=== PATIENT | female | born 1995 | race Caucasian/White ===

== ENCOUNTER 2018-07-29 15:35 | Emergency (ER) | payer MEDICAID, OTHER ==
[~2018-07-29] VITALS: Ht 182.9 cm; Wt 72.7 kg
[~2018-07-29 15:35] MED LIST: AZIT250T PO; NO HOME MEDS; ZOF4T PO
[2018-07-29] MEDS ORDERED: ondansetron/PF 4mg/2ml inj IV ONE (17:00)
[2018-07-29] MEDS ORDERED: normal saline 1000ml 1,000 ML IV ONE (17:00)
[2018-07-29 17:31] LABS: BASOPHILS # (AUTO) 0.1 X10'3 (0-0.2); BASOPHILS % (AUTO) 0.4 % (0-1); EOSINOPHILS % (AUTO) 0.3 % (0-6); HEMATOCRIT 37.8 % (35.0-45.0); HEMOGLOBIN 12.1 g/dl (12.0-16.0); LYMPHOCYTES # (AUTO) 0.8 X10'3 (1.1-4.8); MEAN CORPUSCULAR HEMOGLOBIN 27.5 PG (27.0-31.0); MEAN CORPUSCULAR HGB CONC 32.1 g/dL (33.0-36.5); MEAN CORPUSCULAR VOLUME 85.6 FL (78-98); MEAN PLATELET VOLUME 8.7 FL (7.4-10.4); MONOCYTES # (AUTO) 0.8 X10'3 (0-0.9); MONOCYTES % (AUTO) 5.9 % (2-12); NEUTROPHILS # (AUTO) 12.4 X10'3 (1.8-7.7); NEUTROPHILS % (AUTO) 87.4 % (42-75); PLATELET COUNT 182 X10'3 (140-440); RED BLOOD COUNT 4.42 X10'6 (4.20-5.60); RED CELL DISTRIBUTION WIDTH 13.2 % (11.5-14.5); WHITE BLOOD COUNT 14.2 X10'3 (4.5-11.0)
[2018-07-29 17:40] LABS: ALANINE AMINOTRANSFERASE 21 U/L (12-78); ALBUMIN 3.1 G/DL (3.4-5.0); ALBUMIN/GLOBULIN RATIO 1.2 (1.1-1.5); ALKALINE PHOSPHATASE 52 IU/L (46-116); ANION GAP 12 (8-16); ASPARTATE AMINO TRANSFERASE 17 U/L (10-37); BILIRUBIN,TOTAL 0.2 MG/DL (0.1-1.0); BLOOD UREA NITROGEN 9 MG/DL (7-18); BUN/CREATININE RATIO 11.5 (6.6-38.0); CALCIUM 7.5 MG/DL (8.5-10.1); CHLORIDE 112 MMOL/L (99-107); CREATININE 0.78 MG/DL (0.40-0.90); GLUCOSE 85 MG/DL (70-104); POTASSIUM 3.3 MMOL/L (3.5-5.1); SODIUM 150 MMOL/L (135-145); TOTAL CARBON DIOXIDE 25.9 MMOL/L (24-32); TOTAL PROTEIN 5.6 G/DL (6.4-8.2); eGFR > 90 ML/MIN
[2018-07-29 18:17] LABS: URINE HCG NEGATIVE (NEG)
[2018-07-29 18:23] LABS: URINE AMPHETAMINE SCREEN POSITIVE (Neg); URINE BARBITUATE SCREEN NEGATIVE (Neg); URINE BENZODIAZEPINES SCREEN NEGATIVE (Neg); URINE CANNABINOID SCREEN POSITIVE (Neg); URINE COCAINE SCREEN NEGATIVE (Neg); URINE METHADONE SCREEN NEGATIVE (Neg); URINE OPIATE SCREEN POSITIVE (Neg); URINE PHENCYCLIDINE SCREEN NEGATIVE (Neg)
[2018-07-29 18:28] LABS: CLARITY,URINE SLIGHTLY CLOUDY (Clear); COLOR,URINE YELLOW (Yellow); UA COLLECTION TYPE CLN CATCH MIDSTREAM
[2018-07-29 18:29] LABS: GLUCOSE, URINE NEGATIVE (Neg); KETONES,URINE TRACE mg/dl (Neg); LEUKOCYTE ESTERASE ,URINE NEGATIVE (Neg); NITRITES, URINE NEGATIVE (Neg); OCCULT BLOOD,URINE NEGATIVE (Neg); PROTEIN,URINE TRACE mg/dl (Neg); UROBILINOGEN,URINE 0.2 E.U/dL (0.2-1.0)
[2018-07-29] MEDS ORDERED: ONDA4TAB6 PO (18:29)
[2018-07-29 18:35] LABS: MUCUS STRANDS MANY /LPF (Neg); SQUAMOUS EPITHELIAL CELL,UR MODERATE /LPF (FEW)
[2018-07-29 18:37] LABS: RBC,URINE NONE SEEN /HPF (0-2); TRANSITIONAL EPI CELLS,URINE FEW /HPF; WBC,URINE 0-4 /HPF (0-4)
[2018-07-29 18:38] LABS: BACTERIA,URINE NONE SEEN /HPF (Neg)
[2018-07-29 18:39] LABS: AMMONIUM BIURATE CRYSTALS 2+ /HPF (NEGATIVE)
[2018-07-29 18:45] VITALS: BP 105/65
== END 2018-07-29 18:46 | disposition home or self-care (01) ==
LOC: ER 15:36
DX: F12.10 Cannabis abuse, uncomplicated (principal); R11.2 Nausea with vomiting, unspecified; F11.90 Opioid use, unspecified, uncomplicated; Z86.14 Personal history of Methicillin resistant Staphylococcus aureus infection; Z79.899 Other long term (current) drug therapy
CPT/HCPCS: 36415; 80053; 80305; 81001; 81025; 85025; 96361; 96374; 99283; J2405; J7030

== ENCOUNTER 2020-02-26 22:30 | Emergency (ER) | payer MEDICAID ==
[~2020-02-26] VITALS: Ht 182.9 cm; Wt 69.1 kg
[~2020-02-26 22:30] MED LIST changes: -AZIT250T PO; +ONDA4TAB6 PO; -ZOF4T PO
[2020-02-26] MEDS ORDERED: ondansetron 4mg rapidly disintigrating tab PO ONE (23:20)
[2020-02-27 00:07] VITALS: BP 107/51
[2020-02-27 00:08] LABS: CLARITY,URINE CLEAR (Clear); COLOR,URINE YELLOW (Yellow); GLUCOSE, URINE NEGATIVE (Neg); KETONES,URINE NEGATIVE (Neg); LEUKOCYTE ESTERASE ,URINE NEGATIVE (Neg); NITRITES, URINE NEGATIVE (Neg); OCCULT BLOOD,URINE NEGATIVE (Neg); PROTEIN,URINE NEGATIVE (Neg); UA COLLECTION TYPE CLN CATCH MIDSTREAM; UROBILINOGEN,URINE 0.2 E.U/dL (0.2-1.0)
[2020-02-27 00:19] LABS: URINE HCG NEGATIVE (NEG)
--- NOTE | 2020-02-27 00:21 | NUR ---
GIVEN WARM BLANKET, LIGHTS DIMMED. UPDATED THAT [facility]A SHOULD BE RESULTING IN THE NEXT 30 MIN. PT WITH NO FURTHER NEEDS. VSS. REPORTS ZOFRAN HAS HALPED WITH THE NAUSEA.
[2020-02-27] MEDS ORDERED: ONDA8TAB13 PO (00:25)
== END 2020-02-27 00:50 | disposition home or self-care (01) ==
LOC: ER 22:30
DX: R11.2 Nausea with vomiting, unspecified (principal); F17.200 Nicotine dependence, unspecified, uncomplicated; F12.90 Cannabis use, unspecified, uncomplicated; Z86.14 Personal history of Methicillin resistant Staphylococcus aureus infection; Z79.899 Other long term (current) drug therapy
CPT/HCPCS: 81003; 81025; 96372; 99283; 99284

== ENCOUNTER 2020-03-20 18:07 | Emergency (ER) | payer MEDICAID ==
[~2020-03-20] VITALS: Ht 182.9 cm; Wt 65.2 kg
[~2020-03-20 18:07] MED LIST changes: +ONDA8TAB13 PO
[2020-03-20 18:28] VITALS: BP 133/91
[2020-03-20 19:48] LABS: CLARITY,URINE CLOUDY (Clear); COLOR,URINE YELLOW (Yellow); GLUCOSE, URINE NEGATIVE (Neg); KETONES,URINE NEGATIVE (Neg); LEUKOCYTE ESTERASE ,URINE TRACE (Neg); NITRITES, URINE NEGATIVE (Neg); OCCULT BLOOD,URINE MODERATE (Neg); PROTEIN,URINE NEGATIVE (Neg); UROBILINOGEN,URINE 0.2 E.U/dL (0.2-1.0)
[2020-03-20 19:50] LABS: URINE HCG NEGATIVE (NEG)
[2020-03-20 20:01] LABS: BACTERIA,URINE 1+ /HPF (Neg); RBC,URINE 0-2 /HPF (0-2); SQUAMOUS EPITHELIAL CELL,UR NONE SEEN /LPF (FEW); WBC,URINE 0-4 /HPF (0-4)
[2020-03-20] MEDS ORDERED: CefTRIAXone 250MG IM Kit w/LIDOcaine IM ONE (20:25)
[2020-03-20] MEDS ORDERED: azithromycin 250mg tablet PO ONE (20:25)
[2020-03-22 13:41] LABS: UA COLLECTION TYPE VOIDED
== END 2020-03-20 21:15 | disposition home or self-care (01) ==
LOC: ER 18:07
DX: Z20.2 Contact with and (suspected) exposure to infections with a predominantly sexual mode of transmission (principal); F12.90 Cannabis use, unspecified, uncomplicated; Z79.899 Other long term (current) drug therapy
CPT/HCPCS: 36415; 81001; 81025; 87088; 87491; 87591; 96372; 99283; J0696

== ENCOUNTER 2020-11-01 15:21 | Emergency (ER) | payer MEDICAID ==
[~2020-11-01] VITALS: Ht 182.9 cm; Wt 68.2 kg
[2020-11-01 15:44] VITALS: BP 122/80
== END 2020-11-01 16:28 ==
LOC: ER 15:22
DX: O26.891 Other specified pregnancy related conditions, first trimester (principal); Z02.89 Encounter for other administrative examinations
CPT/HCPCS: 99283

== ENCOUNTER 2021-04-28 01:18 | Emergency (ER) | payer MEDICAID ==
[~2021-04-28] VITALS: Ht 182.9 cm; Wt 73.0 kg
[2021-04-28 03:36] LABS: URINE HCG NEGATIVE (NEG)
[2021-04-28 03:37] LABS: CLARITY,URINE CLOUDY (Clear); COLOR,URINE AMBER (Yellow); GLUCOSE, URINE NEGATIVE (Neg); KETONES,URINE TRACE mg/dl (Neg); LEUKOCYTE ESTERASE ,URINE NEGATIVE (Neg); NITRITES, URINE POSITIVE (Neg); OCCULT BLOOD,URINE NEGATIVE (Neg); PH,URINE 5.5 (4.8-8.0); PROTEIN,URINE NEGATIVE (Neg); UA COLLECTION TYPE CLN CATCH MIDSTREAM; UROBILINOGEN,URINE 0.2 E.U/dL (0.2-1.0)
[2021-04-28 03:57] LABS: BACTERIA,URINE 3+ /HPF (Neg); MUCUS STRANDS FEW /LPF (Neg); RBC,URINE NONE SEEN /HPF (0-2); SQUAMOUS EPITHELIAL CELL,UR FEW /LPF (FEW); WBC,URINE 30-50 /HPF (0-4)
[2021-04-28 04:35] VITALS: BP 109/71
[2021-04-28 04:46] LABS: ALANINE AMINOTRANSFERASE 27 U/L (12-78); ALBUMIN 3.5 G/DL (3.4-5.0); ALBUMIN/GLOBULIN RATIO 1.1 (1.1-1.5); ALKALINE PHOSPHATASE 65 IU/L (46-116); ANION GAP 4 (8-16); ASPARTATE AMINO TRANSFERASE 16 U/L (10-37); BILIRUBIN,TOTAL 0.2 MG/DL (0.1-1.0); BLOOD UREA NITROGEN 15 MG/DL (7-18); BUN/CREATININE RATIO 14.7 (6.6-38.0); CALCIUM 8.9 MG/DL (8.5-10.1); CHLORIDE 109 MMOL/L (99-107); CREATININE 1.02 MG/DL (0.40-0.90); GLUCOSE 117 MG/DL (70-104); LIPASE < 50 U/L (73-393); POTASSIUM 3.7 MMOL/L (3.5-5.1); SODIUM 145 MMOL/L (135-145); TOTAL PROTEIN 6.7 G/DL (6.4-8.2); eGFR 66 ML/MIN
[2021-04-28 04:54] LABS: EOSINOPHILS # (AUTO) 0.2 X10'3 (0-0.9); EOSINOPHILS % (AUTO) 3.3 % (0-6); HEMATOCRIT 38.9 % (35.0-45.0); HEMOGLOBIN 12.7 g/dl (12.0-16.0); LYMPHOCYTES % (AUTO) 42.1 % (21-51); MEAN CORPUSCULAR HGB CONC 32.7 g/dL (33.0-36.5); MEAN CORPUSCULAR VOLUME 85.5 FL (78-98); MEAN PLATELET VOLUME 8.4 FL (7.4-10.4); MONOCYTES # (AUTO) 0.4 X10'3 (0-0.9); MONOCYTES % (AUTO) 9.3 % (2-12); NEUTROPHILS # (AUTO) 2.1 X10'3 (1.8-7.7); NEUTROPHILS % (AUTO) 44.3 % (42-75); PLATELET COUNT 215 X10'3 (140-440); RED BLOOD COUNT 4.56 X10'6 (4.20-5.60); RED CELL DISTRIBUTION WIDTH 14.3 % (11.5-14.5); WHITE BLOOD COUNT 4.6 X10'3 (4.5-11.0)
[2021-04-28] MEDS ORDERED: CEPH-585 PO (05:59)
[2021-04-28] MEDS ORDERED: METR-159 PO (05:59)
== END 2021-04-28 06:09 | disposition home or self-care (01) ==
LOC: ER 01:18
DX: N76.0 Acute vaginitis (principal); N39.0 Urinary tract infection, site not specified; F15.10 Other stimulant abuse, uncomplicated; F11.10 Opioid abuse, uncomplicated; F14.10 Cocaine abuse, uncomplicated
CPT/HCPCS: 36415; 80053; 81001; 81025; 83690; 85025; 87088; 87210; 87491; 87591; 99284; Q0112; 87077; 87186

== ENCOUNTER 2022-05-03 22:21 | Emergency (ER) | payer MEDICAID ==
[~2022-05-03] VITALS: Ht 182.9 cm; Wt 68.2 kg
[2022-05-03 22:32] VITALS: BP 116/82
[2022-05-03 23:08] LABS: HCG SERUM QL NEGATIVE
[2022-05-03 23:17] LABS: BETA HCG,QUANTITATIVE < 1.0 mIU/ml
== END 2022-05-03 23:46 ==
LOC: ER 22:22
DX: Z02.89 Encounter for other administrative examinations (principal); F15.90 Other stimulant use, unspecified, uncomplicated; F11.90 Opioid use, unspecified, uncomplicated; Z86.14 Personal history of Methicillin resistant Staphylococcus aureus infection; Z79.899 Other long term (current) drug therapy
CPT/HCPCS: 36415; 84702; 84703; 99283

== ENCOUNTER 2022-08-31 21:51 | Emergency (ER) | payer MEDICAID ==
[~2022-08-31] VITALS: Ht 182.9 cm; Wt 77.1 kg
[2022-08-31 22:24] LABS: HCG SERUM QL POSITIVE
[2022-08-31 23:09] LABS: BASOPHILS % (AUTO) 0.5 % (0-1); EOSINOPHILS % (AUTO) 0.7 % (0-6); HEMATOCRIT 41.1 % (35.0-45.0); HEMOGLOBIN 13.4 g/dl (12.0-16.0); LYMPHOCYTES # (AUTO) 1.1 X10'3 (1.1-4.8); LYMPHOCYTES % (AUTO) 14.4 % (21-51); MEAN CORPUSCULAR HEMOGLOBIN 27.6 PG (27.0-31.0); MEAN CORPUSCULAR HGB CONC 32.5 g/dL (33.0-36.5); MEAN CORPUSCULAR VOLUME 84.9 FL (78-98); MEAN PLATELET VOLUME 7.9 FL (7.4-10.4); MONOCYTES # (AUTO) 0.4 X10'3 (0-0.9); MONOCYTES % (AUTO) 5.6 % (2-12); NEUTROPHILS # (AUTO) 5.9 X10'3 (1.8-7.7); NEUTROPHILS % (AUTO) 78.8 % (42-75); PLATELET COUNT 231 X10'3 (140-440); RED BLOOD COUNT 4.85 X10'6 (4.20-5.60); RED CELL DISTRIBUTION WIDTH 14.5 % (11.5-14.5); WHITE BLOOD COUNT 7.4 X10'3 (4.5-11.0)
[2022-08-31 23:12] LABS: CLARITY,URINE CLOUDY (Clear); COLOR,URINE YELLOW (Yellow); GLUCOSE, URINE NEGATIVE (Neg); KETONES,URINE NEGATIVE (Neg); LEUKOCYTE ESTERASE ,URINE TRACE (Neg); NITRITES, URINE POSITIVE (Neg); OCCULT BLOOD,URINE NEGATIVE (Neg); PH,URINE 6.5 (4.8-8.0); PROTEIN,URINE NEGATIVE (Neg); UROBILINOGEN,URINE 0.2 E.U/dL (0.2-1.0)
[2022-08-31 23:33] LABS: ALANINE AMINOTRANSFERASE 33 U/L (12-78); ALBUMIN 3.6 G/DL (3.4-5.0); ALBUMIN/GLOBULIN RATIO 1.1 (1.1-1.5); ALKALINE PHOSPHATASE 56 IU/L (46-116); ANION GAP 7 (8-16); ASPARTATE AMINO TRANSFERASE 20 U/L (10-37); BILIRUBIN,TOTAL 0.3 MG/DL (0.1-1.0); BLOOD UREA NITROGEN 13 MG/DL (7-18); BUN/CREATININE RATIO 11.7 (10.0-20.0); CALCIUM 8.7 MG/DL (8.5-10.1); CHLORIDE 107 MMOL/L (99-107); CREATININE 1.11 MG/DL (0.40-0.90); GLUCOSE 97 MG/DL (70-104); POTASSIUM 4.1 MMOL/L (3.5-5.1); SODIUM 142 MMOL/L (135-145); TOTAL CARBON DIOXIDE 27.8 MMOL/L (24-32); TOTAL PROTEIN 6.8 G/DL (6.4-8.2); eGFR 59 ML/MIN
[2022-08-31 23:57] LABS: UA COLLECTION TYPE CLN CATCH MIDSTREAM
[2022-08-31 23:58] LABS: BACTERIA,URINE 4+ /HPF (Neg); MUCUS STRANDS MANY /LPF (Neg); RBC,URINE NONE SEEN /HPF (0-2); SQUAMOUS EPITHELIAL CELL,UR MODERATE /LPF (FEW)
[2022-08-31 23:59] LABS: BETA HCG,QUANTITATIVE 3173 mIU/ml
[2022-09-01] MEDS ORDERED: cephalexin 500mg capsule PO ONE (00:05)
[2022-09-01] MEDS ORDERED: CEPH500C2 PO (00:14)
[2022-09-01] MEDS ORDERED: PNV1TABL75 PO (00:14)
[2022-09-01 00:42] VITALS: BP 130/78
== END 2022-09-01 00:43 ==
LOC: ER 21:51
DX: O23.41 Unspecified infection of urinary tract in pregnancy, first trimester (principal); F15.10 Other stimulant abuse, uncomplicated; Z34.90 Encounter for supervision of normal pregnancy, unspecified, unspecified trimester
CPT/HCPCS: 36415; 76801; 80053; 81001; 84702; 84703; 85025; 86885; 86900; 86901; 87077; 87088; 87186; 99284

== ENCOUNTER 2022-09-02 17:16 | Emergency (ER) | payer MEDICAID ==
[~2022-09-02 17:16] MED LIST changes: +CEPH500C2 PO; +PNV1TABL75 PO
== END 2022-09-02 18:49 | disposition left against medical advice (07) ==
LOC: ER 17:18
DX: Z00.00 Encounter for general adult medical examination without abnormal findings (principal); Z53.21 Procedure and treatment not carried out due to patient leaving prior to being seen by health care provider

== ENCOUNTER 2022-11-07 08:41 | Emergency (ER) | payer MEDICAID ==
[~2022-11-07] VITALS: Ht 185.4 cm; Wt 90.0 kg
[~2022-11-07 08:41] MED LIST changes: -CEPH500C2 PO
[2022-11-07 08:44] VITALS: BP 116/77; PULSE 101; RESP 18; TEMP 97; O2SAT 98
== END 2022-11-07 10:43 | disposition left against medical advice (07) ==
LOC: ER 08:41
DX: N39.0 Urinary tract infection, site not specified (principal); Z53.21 Procedure and treatment not carried out due to patient leaving prior to being seen by health care provider
CPT/HCPCS: 99281

== ENCOUNTER 2022-11-10 08:26 | Emergency (ER) | payer MEDICAID ==
[~2022-11-10] VITALS: Ht 182.9 cm; Wt 73.2 kg
[2022-11-10 09:59] VITALS: BP 115/79; PULSE 116; RESP 18; TEMP 98.9; O2SAT 99
[2022-11-10 10:17] LABS: BASOPHILS % (AUTO) 0.3 % (0-1); EOSINOPHILS % (AUTO) 0.3 % (0-6); HEMATOCRIT 39.9 % (35.0-45.0); LYMPHOCYTES # (AUTO) 0.7 X10'3 (1.1-4.8); LYMPHOCYTES % (AUTO) 12.8 % (21-51); MEAN CORPUSCULAR HEMOGLOBIN 27.9 PG (27.0-31.0); MEAN CORPUSCULAR HGB CONC 32.5 g/dL (33.0-36.5); MEAN CORPUSCULAR VOLUME 85.6 FL (78-98); MEAN PLATELET VOLUME 8.6 FL (7.4-10.4); MONOCYTES # (AUTO) 0.7 X10'3 (0-0.9); MONOCYTES % (AUTO) 12.2 % (2-12); NEUTROPHILS # (AUTO) 4.3 X10'3 (1.8-7.7); NEUTROPHILS % (AUTO) 74.4 % (42-75); PLATELET COUNT 175 X10'3 (140-440); RED BLOOD COUNT 4.66 X10'6 (4.20-5.60); RED CELL DISTRIBUTION WIDTH 13.8 % (11.5-14.5); WHITE BLOOD COUNT 5.8 X10'3 (4.5-11.0)
[2022-11-10 10:23] LABS: BILIRUBIN,URINE NEGATIVE (Neg); CLARITY,URINE CLOUDY (Clear); COLOR,URINE YELLOW (Yellow); GLUCOSE, URINE NEGATIVE (Neg); KETONES,URINE NEGATIVE (Neg); LEUKOCYTE ESTERASE ,URINE SMALL (Neg); NITRITES, URINE POSITIVE (Neg); OCCULT BLOOD,URINE LARGE (Neg); PH,URINE 5.5 (4.8-8.0); PROTEIN,URINE 30 mg/dl (Neg); UROBILINOGEN,URINE 0.2 E.U/dL (0.2-1.0)
[2022-11-10 10:31] LABS: UA COLLECTION TYPE CLN CATCH MIDSTREAM
[2022-11-10 10:32] LABS: SQUAMOUS EPITHELIAL CELL,UR MODERATE /LPF (FEW)
[2022-11-10 10:33] LABS: BACTERIA,URINE 4+ /HPF (Neg); WBC CLUMPS,URINE FEW /HPF (NEGATIVE)
[2022-11-10 10:34] LABS: WBC,URINE 50-100 /HPF (0-4)
[2022-11-10 10:49] LABS: URINE HCG NEGATIVE (NEG)
[2022-11-10 10:58] LABS: ALANINE AMINOTRANSFERASE 27 U/L (12-78); ALBUMIN 3.2 G/DL (3.4-5.0); ALBUMIN/GLOBULIN RATIO 0.9 (1.1-1.5); ALKALINE PHOSPHATASE 58 IU/L (46-116); ANION GAP 10 (8-16); ASPARTATE AMINO TRANSFERASE 16 U/L (10-37); BILIRUBIN,TOTAL 0.2 MG/DL (0.1-1.0); BLOOD UREA NITROGEN 11 MG/DL (7-18); BUN/CREATININE RATIO 11.5 (10.0-20.0); CALCIUM 8.7 MG/DL (8.5-10.1); CHLORIDE 103 MMOL/L (99-107); CREATININE 0.96 MG/DL (0.40-0.90); GLUCOSE 93 MG/DL (70-104); LIPASE < 50 U/L (73-393); POTASSIUM 3.8 MMOL/L (3.5-5.1); SODIUM 138 MMOL/L (135-145); TOTAL CARBON DIOXIDE 24.9 MMOL/L (24-32); TOTAL PROTEIN 6.8 G/DL (6.4-8.2); eCRCL 102 ML/MIN; eGFR 70 ML/MIN
[2022-11-10] MEDS ORDERED: CEFD300C21 PO (11:56)
--- NOTE | 2022-11-10 12:00 | NUR ---
Pt stated she needed to run out to her car for a min. Pt has still not returned. Security notifed.
--- NOTE | 2022-11-10 12:26 | NUR ---
Pt has still not returned to her room.
== END 2022-11-10 12:27 | disposition home or self-care (01) ==
LOC: ER 08:26
DX: N39.0 Urinary tract infection, site not specified (principal); F11.90 Opioid use, unspecified, uncomplicated; F15.90 Other stimulant use, unspecified, uncomplicated; Z79.899 Other long term (current) drug therapy
CPT/HCPCS: 36415; 80053; 81001; 81025; 83690; 85025; 87088; 87186; 99283

== ENCOUNTER 2023-04-30 16:17 | Emergency (ER) | payer MEDICAID ==
[~2023-04-30] VITALS: Ht 182.9 cm; Wt 81.8 kg
[~2023-04-30 16:17] MED LIST changes: +NITR100C11 PO; +PHEN-824 PO
[2023-04-30 16:50] VITALS: BP 124/85; PULSE 116; TEMP 99.4; O2SAT 98
[2023-04-30] MEDS: ketorolac trometh. 30mg/ml inj. IM ONE (17:05)
[2023-04-30] MEDS: acetaminophen 325mg tablet PO ONE (17:05)
[2023-04-30] MEDS: LIDOCAINE 1%/EPI 1:100,000 inj. 10 ML multi-dose vial IJ ONE (17:06)
[2023-04-30] MEDS: morphine 10mg/ml inj. IM ONE (17:14)
[2023-04-30 17:48] VITALS: RESP 18
[2023-04-30] MEDS: LIDOcaine 1% 30ml preserv. free vial IJ STA (17:48)
[2023-04-30] MEDS: ondansetron 4mg rapidly disintigrating tab PO ONE (17:55)
== END 2023-04-30 18:46 ==
LOC: ER 16:17
DX: S52.592A Other fractures of lower end of left radius, initial encounter for closed fracture (principal); S01.81XA Laceration without foreign body of other part of head, initial encounter; F15.90 Other stimulant use, unspecified, uncomplicated; F11.90 Opioid use, unspecified, uncomplicated; Z98.890 Other specified postprocedural states; Z86.14 Personal history of Methicillin resistant Staphylococcus aureus infection; Z79.899 Other long term (current) drug therapy; M25.561 Pain in right knee; M25.562 Pain in left knee; W22.8XXA Striking against or struck by other objects, initial encounter; Y93.89 Activity, other specified; Y92.148 Other place in prison as the place of occurrence of the external cause; Y99.8 Other external cause status
CPT/HCPCS: 12011; 25605; 70160; 70450; 73110; 96372; 99285; J1885; J2274; A4565; A6449

== ENCOUNTER 2023-07-15 04:32 | Emergency (ER) | payer MEDICAID ==
[~2023-07-15] VITALS: Ht 182.9 cm; Wt 81.8 kg
[2023-07-15 04:52] VITALS: BP 105/62; PULSE 103; TEMP 97.8; O2SAT 99
[2023-07-15 05:23] VITALS: RESP 18
[2023-07-15 05:57] LABS: BILIRUBIN,URINE NEGATIVE (Neg); CLARITY,URINE CLOUDY (Clear); COLOR,URINE YELLOW (Yellow); GLUCOSE, URINE NEGATIVE (Neg); KETONES,URINE NEGATIVE (Neg); LEUKOCYTE ESTERASE ,URINE TRACE (Neg); NITRITES, URINE POSITIVE (Neg); OCCULT BLOOD,URINE NEGATIVE (Neg); PROTEIN,URINE NEGATIVE (Neg); UROBILINOGEN,URINE 0.2 E.U/dL (0.2-1.0)
[2023-07-15 06:03] LABS: UA COLLECTION TYPE CLN CATCH MIDSTREAM
[2023-07-15 06:05] LABS: BACTERIA,URINE 4+ /HPF (Neg); MUCUS STRANDS NONE SEEN /LPF (Neg); RBC,URINE NONE SEEN /HPF (0-2); SQUAMOUS EPITHELIAL CELL,UR FEW /LPF (FEW); WBC,URINE 50-100 /HPF (0-4)
[2023-07-15 06:11] LABS: URINE HCG NEGATIVE (NEG)
[2023-07-15] MEDS ORDERED: PHEN-824 PO (07:12)
[2023-07-15] MEDS ORDERED: DOXY-224 PO (07:12)
[2023-07-15] MEDS: DOXYCYCLINE 100MG CAPSULE PO STA (07:23)
[2023-07-15] MEDS: phenazopyridine 100mg tablet PO ONE (07:23)
[2023-07-17 07:50] LABS: CHLAMYDIA TRACHOMATIS, NAA Negative (Negative)
== END 2023-07-15 07:36 | disposition home or self-care (01) ==
LOC: ER 04:33
DX: N39.0 Urinary tract infection, site not specified (principal); F17.200 Nicotine dependence, unspecified, uncomplicated; F15.90 Other stimulant use, unspecified, uncomplicated; Z79.2 Long term (current) use of antibiotics; Z79.899 Other long term (current) drug therapy
CPT/HCPCS: 36415; 81001; 81025; 87077; 87088; 87186; 87491; 99283